=== PATIENT | female | born 2000 | race Caucasian/White ===

== ENCOUNTER 2023-09-30 23:37 | Emergency (ER) | payer OTHER ==
[2023-10-01] MEDS: Proparacaine 0.5% Ophth Soln 15 ML Bottle EYERT ONE (00:08)
[2023-10-01] MEDS: Fluorescein 1 MG Ophth Strip EYERT ONE (00:08)
[2023-10-01] MEDS: Fluorescein 1 MG Ophth Strip ONE (00:09)
[2023-10-01] MEDS: Tetracaine HCl/PF 0.5% 4 ML Bottle ONE (00:09)
[2023-10-01] MEDS: Ciprofloxacin 0.3% Ophth Soln 5 ML Bottle EYELF SCH (00:20)
== END 2023-10-01 00:28 | disposition home or self-care (01) ==
LOC: JD.ED 23:37
DX: S05.02XA Injury of conjunctiva and corneal abrasion without foreign body, left eye, initial encounter (principal); Z88.2 Allergy status to sulfonamides; X58.XXXA Exposure to other specified factors, initial encounter
CPT/HCPCS: 99283; A9270-GY; J3490